=== PATIENT | female | born 1975 | race Hispanic/Latino ===

== ENCOUNTER 2019-09-01 13:47 | Outpatient (CLI) | payer OTHER ==
--- NOTE | 2019-09-01 14:56 | ULT ---
TRANSVAGINAL TRANSABDOMINAL PELVIC ULTRASOUND: HISTORY: History of dysfunctional uterine bleeding. COMPARISON: Prior transvaginal ultrasound dated 08/31/2007. FINDINGS: Singleton scale, color Doppler, with spectral Doppler images were obtained of the pelvis via a transabdomi nal transvaginal approach. The uterus measures 8.1 x 6.4 x 5.7 cm giving an estimated total uterine volume of 154.37 cm. The en dometrium is markedly thickened measuring 2.98 cm in its greatest transverse dimension. There is a n odular echogenic focus seen in the region of the uterine fundus measuring 1.7 x 1.1 x 2.0 cm possibly related to redundant endometrial tissue or possibly a polyp. A submucosal fibroid is felt to be unl ikely. The right ovary measures 2.8 x 2.2 x 2.4 cm. The left ovary measures 2.3 x 2 x 2 cm. There is juan f l flow to both ovaries. No free fluid is evident. IMPRESSION: Markedly thickened endometrial stripe with a prominent echogenic fold or polyp seen within the fundus . Would recommend consideration for hysteroscopy or possible endometrial sampling. Endometrial hype rplasia could cause a similar appearance. Endometrial carcinoma cannot be entirely excluded. POS: [facility]
== END 2019-09-01 13:48 | disposition home or self-care (01) ==
LOC: BICULT 13:47
PROVIDERS: ATTEND Specialist
DX: N93.8 Other specified abnormal uterine and vaginal bleeding (principal); R93.89 Abnormal findings on diagnostic imaging of other specified body structures
CPT/HCPCS: 76856

== ENCOUNTER 2024-06-26 19:05 | Emergency (ER) | payer OTHER, SELFPAY ==
[2024-06-26] MEDS ORDERED: predniSONE 20 MG TAB ONE (19:38)
[2024-06-26] MEDS ORDERED: Ketorolac Tromethamine 30 MG (1 mL) VIAL ONE (19:38)
== END 2024-06-26 20:53 | disposition home or self-care (01) ==
LOC: ERS 19:05
DX: M54.50 Low back pain, unspecified (principal); M79.605 Pain in left leg; I10 Essential (primary) hypertension; F17.210 Nicotine dependence, cigarettes, uncomplicated
CPT/HCPCS: 96372; J1885; J7512